=== PATIENT | female | born 1990 | race Caucasian/White ===

== ENCOUNTER → 2017-01-05 | Outpatient (CLI) | payer MEDICAID ==
[~2017-01-05] MED LIST: ALBUTEROL0.09 MG/A1 IH; ALBUTEROL0.83 MG/ML IH; AMOXICILLIN 50500 MG PO; AMOXICILLIN875 MG PO; BACTRIM DS 8001 TAB PO; BCP TD; BIRTH CONTROL PILL; BIRTH CONTROL PILLS; CEFTIN 250250 MG/TAB PO; CEFTIN250 M1 PO; CEPHALEXIN500 M1 PO; DIFLUCAN150 MG PO; DOXYCYCLINE 10100 MG PO; DROSPIRENONE; FLAGYL 375375 MG PO; FOLIC ACID PO; IBUPROFEN800 MG PO; LORTAB 2.5/5001 TAB PO; LORTAB 5/500 501 TAB PO; METRONIDAZOLE500 MG PO; MULTIPLE VITAMI1 CAP PO; NO HOME MEDICATIONS; NORCO 325 MG-51 TAB PO; NORCO 325 MG-7.1 TAB PO; PEPCID 20MG TAB20 MG PO; PERCOCET 325 MG1 TA2 PO; PHENERGAN 25 TA25 MG PO; PHENERGAN25 MG RC; PREDNISONE10 MG PO; PREDNISONE20 MG PO; PRENATAL VITAMI1 TA5 PO; PRENATAL1 TA1 PO; PRILOSEC 20MG20 MG PO; PRILOSEC10 MG PO; PROVENTIL0.09 MG/A1 IH; PYRIDIUM200 M1 PO; SEASONIQUE1 TAB PO; SEPTRA DS 8001 TAB PO; TAMIFLU 75MG75 MG PO; TRIAMCINOLONE A15 GM TP; ULTRAM 50MG TAB50 MG PO; VENTOLIN0.09 MG IH; VENTOLIN0.09 MG/AC IH; VICOPROFEN 201 UDTAB PO; ZITHROMAX TRI-500 MG PO; ZOFRAN 4MG T4 MG/TAB PO; ZOFRAN ODT4 MG PO
== END ==
LOC: MC.RAD 07:30
DX: N63 Unspecified lump in breast (principal); D24.2 Benign neoplasm of left breast; D24.1 Benign neoplasm of right breast

== ENCOUNTER 2017-02-08 05:12 | Emergency (ER) | payer MEDICAID ==
[~2017-02-08] VITALS: Ht 154.9 cm; Wt 57.7 kg
[~2017-02-08 05:12] MED LIST changes: -FLAGYL 375375 MG PO; -PERCOCET 325 MG1 TA2 PO; -PRILOSEC10 MG PO
[2017-02-08 05:16] VITALS: PULSE 95; TEMP 98
[2017-02-08 05:55] LABS: BASO % 0.4 % (0.0-2.0); EOS # 0.5 (0.0-0.7); EOS % 7.4 % (0-4.0); GRAN # 3.6 (1.4-6.5); GRAN % 51.8 % (42.2-75.2); HEMATOCRIT 41.4 % (37.0-47.0); HEMOGLOBIN 14.2 g/dl (12.5-16.0); LYMPH # 2.5 (1.2-3.4); LYMPH % 35.3 % (20.0-51.0); MEAN CELL VOLUME 83 fl (80.0-100.0); MEAN CORPUSCULAR HEMOGLOBIN 28 pg (27.0-31.0); MEAN CORPUSCULAR HGB CONC 34 g/dl (33.0-37.0); MEAN PLATELET VOLUME 9.7 fl (7.4-10.4); MONO # 0.3 (0.1-0.6); MONO % 4.7 % (1.7-9.3); PLATELET COUNT 215 K/mm3 (130-400); RED BLOOD COUNT 5.02 M/mm3 (4.10-5.30); REDCELL DISTRIBUTION WIDTH-CV 12.5 % (11.5-14.5)
[2017-02-08 06:07] LABS: ALANINE AMINOTRANSFERASE 25 U/L (9-52); ALBUMIN 3.9 gm/dL (3.5-5.0); ALKALINE PHOSPHATASE 70 U/L (50-136); ANION GAP 11 mmol/L (7-16); BILIRUBIN,TOTAL 0.6 mg/dL (0.0-1.0); BLOOD UREA NITROGEN 14 mg/dL (7-17); CALCIUM 8.9 mg/dL (8.4-10.2); CARBON DIOXIDE 23 mmol/L (22-30); CHLORIDE 105 mmol/L (98-107); CREATININE, serum 0.76 mg/dL (0.52-1.25); GLUCOSE 91 mg/dL (74-106); LIPASE 196 U/L (23-300); POTASSIUM 3.9 mmol/L (3.4-5.0); SODIUM 138 mmol/L (137-145); TOTAL PROTEIN 7.1 gm/dL (6.4-8.2)
[2017-02-08 06:08] LABS: C-REACTIVE PROTEIN < 0.5 mg/dL (0.0-0.9)
[2017-02-08 07:20] LABS: PH 6 (5-8); URINE APPEARANCE Clear; URINE BACTERIA None Seen /hpf; URINE BILIRUBIN Negative (NEGATIVE); URINE BLOOD Negative (NEGATIVE); URINE COLOR Straw; URINE GLUCOSE Negative (NEGATIVE); URINE KETONE Negative (NEGATIVE); URINE RBC 0-2 /hpf; URINE UROBILINOGEN Negative (NEGATIVE); URINE WBC 0-2 /hpf
[2017-02-08] MEDS ORDERED: PHENERGAN 25 TA25 MG PO (09:05)
[2017-02-08] MEDS ORDERED: NORCO 325 MG-51 TAB PO (09:05)
[2017-02-08 10:15] VITALS: BP 98/74
== END 2017-02-08 09:31 | disposition home or self-care (01) ==
LOC: COL.ER 05:12
PROVIDERS: Emergency Medicine
DX: R10.11 Right upper quadrant pain (principal); K59.00 Constipation, unspecified
CPT/HCPCS: J1170; J2405; J2550; J7030; Q9967

== ENCOUNTER → 2017-03-19 | Outpatient (CLI) | payer MEDICAID ==
[~2017-03-19] MED LIST changes: +FLAGYL 375375 MG PO; +PERCOCET 325 MG1 TA2 PO; +PRILOSEC10 MG PO
== END ==
LOC: COL.RAD 06:06
DX: R10.11 Right upper quadrant pain (principal); R11.2 Nausea with vomiting, unspecified; R10.13 Epigastric pain
CPT/HCPCS: A9537; J2805

== ENCOUNTER 2017-03-21 19:17 | Emergency (ER) | payer MEDICAID ==
[~2017-03-21] VITALS: Ht 154.9 cm; Wt 59.1 kg
[~2017-03-21 19:17] MED LIST changes: -FLAGYL 375375 MG PO; -PERCOCET 325 MG1 TA2 PO; -PRILOSEC10 MG PO
[2017-03-21 19:18] VITALS: BP 112/76; TEMP 98
[2017-03-21] MEDS ORDERED: MULTIPLE VITAMI1 CAP PO (19:21)
[2017-03-21] MEDS ORDERED: PRILOSEC10 MG PO (19:21)
[2017-03-21 20:17] LABS: PH 6 (5-8); SQUAMOUS EPITHELIAL 0-2 /hpf; URINE APPEARANCE Clear; URINE BACTERIA Rare /hpf; URINE BILIRUBIN Negative (NEGATIVE); URINE BLOOD Negative (NEGATIVE); URINE COLOR Yellow; URINE GLUCOSE Negative (NEGATIVE); URINE KETONE Negative (NEGATIVE); URINE RBC 0-2 /hpf; URINE UROBILINOGEN Negative (NEGATIVE); URINE WBC 0-2 /hpf
[2017-03-21 20:40] LABS: BASO % 0.4 % (0.0-2.0); EOS # 0.4 (0.0-0.7); EOS % 5.5 % (0-4.0); GRAN # 3.6 (1.4-6.5); GRAN % 49.5 % (42.2-75.2); HEMATOCRIT 41.3 % (37.0-47.0); HEMOGLOBIN 13.9 g/dl (12.5-16.0); LYMPH # 2.8 (1.2-3.4); LYMPH % 38.9 % (20.0-51.0); MEAN CELL VOLUME 84 fl (80.0-100.0); MEAN CORPUSCULAR HEMOGLOBIN 28 pg (27.0-31.0); MEAN CORPUSCULAR HGB CONC 34 g/dl (33.0-37.0); MEAN PLATELET VOLUME 9.5 fl (7.4-10.4); MONO # 0.4 (0.1-0.6); MONO % 5.4 % (1.7-9.3); PLATELET COUNT 229 K/mm3 (130-400); RED BLOOD COUNT 4.92 M/mm3 (4.10-5.30); REDCELL DISTRIBUTION WIDTH-CV 12.8 % (11.5-14.5); WHITE BLOOD COUNT 7.3 K/mm3 (4.8-10.8)
[2017-03-21 20:47] LABS: ADJUSTED CALCIUM 9.2 mg/dL (8.4-10.2); ALANINE AMINOTRANSFERASE 28 U/L (9-52); ALBUMIN 3.6 gm/dL (3.5-5.0); ALKALINE PHOSPHATASE 70 U/L (50-136); ANION GAP 10 mmol/L (7-16); BILIRUBIN,TOTAL 0.4 mg/dL (0.0-1.0); BLOOD UREA NITROGEN 14 mg/dL (7-17); CALCIUM 8.9 mg/dL (8.4-10.2); CARBON DIOXIDE 28 mmol/L (22-30); CHLORIDE 104 mmol/L (98-107); CREATININE, serum 0.83 mg/dL (0.52-1.25); GLUCOSE 68 mg/dL (74-106); POTASSIUM 3.9 mmol/L (3.4-5.0); SODIUM 142 mmol/L (137-145); TOTAL PROTEIN 6.4 gm/dL (6.4-8.2)
[2017-03-21 20:52] LABS: C-REACTIVE PROTEIN < 0.5 mg/dL (0.0-0.9)
[2017-03-21] MEDS ORDERED: NORCO 325 MG-51 TAB PO (21:44)
[2017-03-21 23:00] VITALS: PULSE 96
[2017-03-22 00:03] LABS: CHLAMYDIA/TRACH by PCR Female NOT DETECTED; NEISSERIA GON by PCR Female NOT DETECTED
== END 2017-03-21 23:00 | disposition home or self-care (01) ==
LOC: COL.ER 19:17
PROVIDERS: Nurse Practitioner
DX: R10.2 Pelvic and perineal pain (principal); J45.909 Unspecified asthma, uncomplicated; G43.909 Migraine, unspecified, not intractable, without status migrainosus
CPT/HCPCS: J1170; J1885; J2405; J7030

== ENCOUNTER 2017-03-30 13:03 | Day surgery (SDC) | payer MEDICAID ==
[~2017-03-30] VITALS: Ht 154.9 cm; Wt 60.4 kg
[~2017-03-30 13:03] MED LIST changes: +PRILOSEC10 MG PO
[2017-03-30 13:52] VITALS: BP 103/78; PULSE 81; TEMP 98.4
[2017-03-30 14:49] VITALS: BP 106/74; PULSE 96; TEMP 98
[2017-03-30 15:00] VITALS: BP 111/77; PULSE 91
[2017-03-30 15:15] VITALS: BP 109/79; PULSE 81
[2017-03-30 15:30] VITALS: BP 110/91; PULSE 95
[2017-03-30 15:45] VITALS: BP 111/90; PULSE 95
== END 2017-03-30 15:52 | disposition home or self-care (01) ==
LOC: SDCO 13:03
DX: K21.9 Gastro-esophageal reflux disease without esophagitis (principal); K30 Functional dyspepsia
CPT/HCPCS: J2250; J3010; J7030

== ENCOUNTER 2017-04-27 23:45 | Emergency (ER) | payer MEDICAID ==
[~2017-04-27] VITALS: Ht 154.9 cm; Wt 58.2 kg
[2017-04-27 23:48] VITALS: TEMP 98.2
[2017-04-27] MEDS ORDERED: FLAGYL 375375 MG PO (23:53)
[2017-04-27] MEDS ORDERED: NORCO 325 MG-51 TAB PO (23:54)
[2017-04-28] MEDS ORDERED: PERCOCET 325 MG1 TA2 PO (01:45)
[2017-04-28 01:55] VITALS: BP 123/71; PULSE 68
== END 2017-04-28 01:55 | disposition home or self-care (01) ==
LOC: COL.ER 23:45
DX: G89.18 Other acute postprocedural pain (principal); R10.9 Unspecified abdominal pain; E16.2 Hypoglycemia, unspecified; J45.909 Unspecified asthma, uncomplicated; Z90.49 Acquired absence of other specified parts of digestive tract; Z98.51 Tubal ligation status; W50.1XXA Accidental kick by another person, initial encounter
CPT/HCPCS: J1170; J2405; J7030

== ENCOUNTER 2017-05-18 13:45 | Emergency (ER) | payer MEDICAID ==
[~2017-05-18] VITALS: Ht 154.9 cm; Wt 58.2 kg
[~2017-05-18 13:45] MED LIST changes: +FLAGYL 375375 MG PO; +PERCOCET 325 MG1 TA2 PO
[2017-05-18 13:59] VITALS: BP 114/78; TEMP 99.3
[2017-05-18 15:56] VITALS: PULSE 80
== END 2017-05-18 15:48 | disposition home or self-care (01) ==
LOC: COL.ER 13:45
DX: R21 Rash and other nonspecific skin eruption (principal); L29.9 Pruritus, unspecified
CPT/HCPCS: J1100

== ENCOUNTER 2017-07-28 18:59 | Emergency (ER) | payer MEDICAID ==
[~2017-07-28] VITALS: Ht 154.9 cm; Wt 61.4 kg
[2017-07-28 19:07] VITALS: BP 120/82; PULSE 81; TEMP 98.5
[2017-07-28] MEDS ORDERED: PROBIOTIC-SUNMARK PO (20:05)
== END 2017-07-28 21:34 | disposition home or self-care (01) ==
LOC: COL.ER 18:59
DX: G43.909 Migraine, unspecified, not intractable, without status migrainosus (principal); J45.909 Unspecified asthma, uncomplicated
CPT/HCPCS: J1200; J1885; J2405; J7030

== ENCOUNTER 2017-08-21 13:04 | Day surgery (SDC) | payer MEDICAID ==
[~2017-08-21] VITALS: Ht 154.9 cm; Wt 60.6 kg
[~2017-08-21 13:04] MED LIST changes: +PROBIOTIC-SUNMARK PO
[2017-08-21] MEDS ORDERED: ZANTAC 150MG T150 MG PO (13:17)
[2017-08-21] MEDS ORDERED: ZOFRAN8 MG PO (13:19)
[2017-08-21 13:39] VITALS: BP 91/73; PULSE 72; TEMP 98.4
[2017-08-21 15:46] VITALS: BP 101/67; PULSE 72; TEMP 98.6
[2017-08-21 16:00] VITALS: BP 110/71; PULSE 75
[2017-08-21] MEDS ORDERED: LEVBID0.375 MG PO (16:02)
[2017-08-21] MEDS ORDERED: BENEFIBER PO (16:03)
[2017-08-21 16:15] VITALS: BP 99/71; PULSE 55
[2017-08-21 16:41] VITALS: BP 97/62; PULSE 82
== END 2017-08-21 16:40 | disposition home or self-care (01) ==
LOC: SDCO 13:04
DX: K64.0 First degree hemorrhoids (principal); Z90.49 Acquired absence of other specified parts of digestive tract
CPT/HCPCS: OP; J2250; J3010; J7030

== ENCOUNTER 2017-09-22 19:52 | Emergency (ER) | payer MEDICAID ==
[~2017-09-22] VITALS: Ht 154.9 cm; Wt 60.5 kg
[~2017-09-22 19:52] MED LIST changes: +BENEFIBER PO; +LEVBID0.375 MG PO; +ZANTAC 150MG T150 MG PO; +ZOFRAN8 MG PO
[2017-09-22 19:54] VITALS: TEMP 98.9
[2017-09-22 20:26] LABS: COLLECTION METHOD CLEAN CATCH
[2017-09-22 20:32] LABS: MUCOUS Present /lpf; PH 5 (5-8); URINE APPEARANCE Clear; URINE BACTERIA None Seen /hpf; URINE BILIRUBIN Negative (NEGATIVE); URINE BLOOD Negative (NEGATIVE); URINE COLOR Yellow; URINE GLUCOSE Negative (NEGATIVE); URINE KETONE Negative (NEGATIVE); URINE LEUKOCYTE ESTERASE Negative (NEGATIVE); URINE PROTEIN(semi-quant) Negative (NEGATIVE); URINE RBC 0-2 /hpf; URINE UROBILINOGEN Negative (NEGATIVE); URINE WBC 0-2 /hpf
[2017-09-22 20:36] LABS: BASO % 0.3 % (0.0-2.0); EOS # 0.3 (0.0-0.7); EOS % 3.2 % (0-4.0); GRAN % 78.9 % (42.2-75.2); HEMATOCRIT 42.5 % (37.0-47.0); HEMOGLOBIN 14.1 g/dl (12.5-16.0); LYMPH # 1.3 (1.2-3.4); LYMPH % 12.5 % (20.0-51.0); MEAN CELL VOLUME 85 fl (80.0-100.0); MEAN CORPUSCULAR HEMOGLOBIN 28 pg (27.0-31.0); MEAN CORPUSCULAR HGB CONC 33 g/dl (33.0-37.0); MEAN PLATELET VOLUME 9.8 fl (7.4-10.4); MONO # 0.5 (0.1-0.6); MONO % 4.7 % (1.7-9.3); PLATELET COUNT 209 K/mm3 (130-400); RED BLOOD COUNT 5.03 M/mm3 (4.10-5.30); WHITE BLOOD COUNT 10.1 K/mm3 (4.8-10.8)
[2017-09-22] MEDS ORDERED: BENTYL 10MG10 MG/CAP PO (20:37)
[2017-09-22] MEDS ORDERED: PROAIR HFA0.09 MG/AC IH (20:37)
[2017-09-22] MEDS ORDERED: CARAFATE 1GM1 G PO (20:37)
[2017-09-22] MEDS ORDERED: PRILOSEC 20MG20 MG PO (20:38)
[2017-09-22] MEDS ORDERED: CLARITIN 1010 MG/TAB PO (20:38)
[2017-09-22 20:44] LABS: ADJUSTED CALCIUM 9.2 mg/dL (8.4-10.2); ALBUMIN 3.9 gm/dL (3.5-5.0); BILIRUBIN,TOTAL 0.5 mg/dL (0.0-1.0); C-REACTIVE PROTEIN 0.7 mg/dL (0.0-0.9); CALCIUM 9.1 mg/dL (8.4-10.2); CREATININE, serum 0.84 mg/dL (0.52-1.25); POTASSIUM 3.7 mmol/L (3.4-5.0)
[2017-09-22 22:14] VITALS: BP 111/70; PULSE 96
[2017-09-23] MEDS ORDERED: PHENERGAN 25 TA25 MG PO (05:35)
[2017-09-23] MEDS ORDERED: ZOFRAN ODT4 MG PO (05:35)
== END 2017-09-22 22:15 | disposition home or self-care (01) ==
LOC: COL.ER 19:52
PROVIDERS: Physician Assistant
DX: K52.9 Noninfective gastroenteritis and colitis, unspecified (principal); Z90.49 Acquired absence of other specified parts of digestive tract; Z98.51 Tubal ligation status
CPT/HCPCS: J1885; J2405; J2550; J7030

== ENCOUNTER 2017-09-23 03:25 | Emergency (ER) | payer MEDICAID ==
[~2017-09-23] VITALS: Ht 154.9 cm; Wt 60.5 kg
[~2017-09-23 03:25] MED LIST changes: +BENTYL 10MG10 MG/CAP PO; +CARAFATE 1GM1 G PO; +CLARITIN 1010 MG/TAB PO; +PROAIR HFA0.09 MG/AC IH
[2017-09-23 03:29] VITALS: BP 120/73; TEMP 97.4
[2017-09-23 04:39] LABS: BASO % 0.2 % (0.0-2.0); EOS # 0.2 (0.0-0.7); EOS % 1.9 % (0-4.0); GRAN # 7.5 (1.4-6.5); HEMATOCRIT 42.2 % (37.0-47.0); HEMOGLOBIN 14.1 g/dl (12.5-16.0); LYMPH # 0.8 (1.2-3.4); LYMPH % 9.2 % (20.0-51.0); MEAN CELL VOLUME 85 fl (80.0-100.0); MEAN CORPUSCULAR HEMOGLOBIN 28 pg (27.0-31.0); MEAN CORPUSCULAR HGB CONC 33 g/dl (33.0-37.0); MONO # 0.5 (0.1-0.6); MONO % 5.4 % (1.7-9.3); PLATELET COUNT 211 K/mm3 (130-400); RED BLOOD COUNT 4.97 M/mm3 (4.10-5.30); WHITE BLOOD COUNT 9.1 K/mm3 (4.8-10.8)
[2017-09-23 04:51] LABS: ALBUMIN 3.8 gm/dL (3.5-5.0); BILIRUBIN,TOTAL 0.5 mg/dL (0.0-1.0); C-REACTIVE PROTEIN 1.6 mg/dL (0.0-0.9); CALCIUM 8.8 mg/dL (8.4-10.2); CREATININE, serum 0.78 mg/dL (0.52-1.25); POTASSIUM 4.2 mmol/L (3.4-5.0); TOTAL PROTEIN 6.9 gm/dL (6.4-8.2)
[2017-09-23] MEDS ORDERED: PHENERGAN 25 TA25 MG PO (05:35)
[2017-09-23] MEDS ORDERED: ZOFRAN ODT4 MG PO (05:35)
[2017-09-23 06:12] VITALS: PULSE 106
== END 2017-09-23 06:13 | disposition home or self-care (01) ==
LOC: COL.ER 03:25
PROVIDERS: Emergency Medicine
DX: R11.10 Vomiting, unspecified (principal); R19.7 Diarrhea, unspecified; Z90.49 Acquired absence of other specified parts of digestive tract
CPT/HCPCS: J2405; J2550; J7030

== ENCOUNTER 2017-10-27 23:21 | Emergency (ER) | payer MEDICAID ==
[~2017-10-27] VITALS: Ht 152.4 cm; Wt 60.5 kg
[2017-10-27 23:25] VITALS: BP 105/67; TEMP 98.1
[2017-10-27] MEDS ORDERED: DIFLUCAN150 MG PO (23:31)
[2017-10-28 01:07] VITALS: PULSE 105
== END 2017-10-28 01:07 | disposition home or self-care (01) ==
LOC: COL.ER 23:21
DX: J45.901 Unspecified asthma with (acute) exacerbation (principal)
CPT/HCPCS: J2930

== ENCOUNTER 2018-05-14 00:55 | Emergency (ER) | payer BC ==
[~2018-05-14] VITALS: Ht 152.4 cm; Wt 61.4 kg
[2018-05-14 00:58] VITALS: BP 108/75; PULSE 94; TEMP 98
[2018-05-14] MEDS ORDERED: WELLBUTRIN SR150 M1 PO (01:09)
[2018-05-14] MEDS ORDERED: PRILOSEC 20MG20 MG PO (01:09)
== END 2018-05-14 01:49 | disposition home or self-care (01) ==
LOC: COL.ER 00:55
DX: H92.02 Otalgia, left ear (principal); F32.9 Major depressive disorder, single episode, unspecified; F41.9 Anxiety disorder, unspecified; K21.9 Gastro-esophageal reflux disease without esophagitis

== ENCOUNTER 2018-11-06 21:07 | Emergency (ER) | payer BC, OTHER ==
[~2018-11-06] VITALS: Ht 154.9 cm; Wt 61.8 kg
[~2018-11-06 21:07] MED LIST changes: +WELLBUTRIN SR150 M1 PO
[2018-11-06 21:09] VITALS: BP 116/78; TEMP 98.3
[2018-11-06] MEDS ORDERED: CLARITIN 1010 MG/TAB PO (21:15)
[2018-11-06] MEDS ORDERED: PREDNISONE10 MG PO (22:26)
[2018-11-06 22:28] VITALS: PULSE 94
[2018-11-06] MEDS ORDERED: BENTYL 20MG20 MG/TAB PO (22:29)
== END 2018-11-06 22:41 | disposition home or self-care (01) ==
LOC: COL.ER 21:07
DX: J45.901 Unspecified asthma with (acute) exacerbation (principal); J06.9 Acute upper respiratory infection, unspecified
CPT/HCPCS: J7512

== ENCOUNTER 2019-05-05 18:01 | Emergency (ER) | payer SELFPAY ==
[~2019-05-05] VITALS: Ht 154.9 cm; Wt 67.7 kg
[~2019-05-05 18:01] MED LIST changes: +BENTYL 20MG20 MG/TAB PO
[2019-05-05 18:23] VITALS: TEMP 98.1
[2019-05-05 21:08] LABS: BASO % 0.2 % (0.0-2.0); EOS # 0.3 (0.0-0.7); EOS % 3.4 % (0-4.0); GRAN # 4.8 (1.4-6.5); GRAN % 54.3 % (42.2-75.2); HEMATOCRIT 46.3 % (37.0-47.0); HEMOGLOBIN 15.5 g/dl (12.5-16.0); LYMPH # 3.2 (1.2-3.4); LYMPH % 36.2 % (20.0-51.0); MEAN CELL VOLUME 85 fl (80.0-100.0); MEAN CORPUSCULAR HEMOGLOBIN 28 pg (27.0-31.0); MEAN CORPUSCULAR HGB CONC 34 g/dl (33.0-37.0); MEAN PLATELET VOLUME 9.4 fl (7.4-10.4); MONO # 0.5 (0.1-0.6); MONO % 5.4 % (1.7-9.3); PLATELET COUNT 257 K/mm3 (130-400); RED BLOOD COUNT 5.46 M/mm3 (4.10-5.30); REDCELL DISTRIBUTION WIDTH-CV 12.7 % (11.5-14.5)
[2019-05-05 21:13] LABS: COLLECTION METHOD CLEAN CATCH
[2019-05-05 21:18] LABS: PH 7 (5-8); SQUAMOUS EPITHELIAL 0-2 /hpf; URINE APPEARANCE Clear; URINE BACTERIA None Seen /hpf; URINE BILIRUBIN Negative (NEGATIVE); URINE BLOOD Negative (NEGATIVE); URINE COLOR Straw; URINE GLUCOSE Negative (NEGATIVE); URINE KETONE Negative (NEGATIVE); URINE LEUKOCYTE ESTERASE Negative (NEGATIVE); URINE NITRATE Negative (NEGATIVE); URINE PROTEIN(semi-quant) Negative (NEGATIVE); URINE RBC 0-2 /hpf; URINE UROBILINOGEN Negative (NEGATIVE)
[2019-05-05 21:21] LABS: ALANINE AMINOTRANSFERASE 38 U/L (9-52); ALBUMIN 4.1 gm/dL (3.5-5.0); ALKALINE PHOSPHATASE 79 U/L (50-136); ANION GAP 8 mmol/L (7-16); AST,SGOT 36 U/L (15-37); BILIRUBIN,TOTAL 0.2 mg/dL (0.0-1.0); BLOOD UREA NITROGEN 12 mg/dL (7-17); C-REACTIVE PROTEIN < 0.5 mg/dL (0.0-0.9); CALCIUM 9.1 mg/dL (8.4-10.2); CARBON DIOXIDE 28 mmol/L (22-30); CHLORIDE 104 mmol/L (98-107); CREATININE, serum 0.79 (0.52-1.25); GLUCOSE 87 mg/dL (74-106); LIPASE 115 U/L (23-300); SODIUM 140 mmol/L (137-145); TOTAL PROTEIN 7.4 gm/dL (6.4-8.2)
[2019-05-05] MEDS ORDERED: ZOFRAN ODT4 MG PO (21:46)
[2019-05-05 21:55] VITALS: BP 131/82; PULSE 94
== END 2019-05-05 21:55 | disposition home or self-care (01) ==
LOC: COL.ER 18:01
PROVIDERS: Physician Assistant
DX: R10.13 Epigastric pain (principal); R11.2 Nausea with vomiting, unspecified; Z98.51 Tubal ligation status; Z90.49 Acquired absence of other specified parts of digestive tract
CPT/HCPCS: J2270; J2405; J7030

== ENCOUNTER 2019-05-08 08:18 | Emergency (ER) | payer SELFPAY ==
[~2019-05-08] VITALS: Ht 154.9 cm; Wt 65.9 kg
[2019-05-08 08:55] LABS: COLLECTION METHOD CLEAN CATCH
[2019-05-08 09:02] LABS: MUCOUS Present /lpf; PH 6 (5-8); SQUAMOUS EPITHELIAL 0-2 /hpf; URINE APPEARANCE Clear; URINE BACTERIA Rare /hpf; URINE BILIRUBIN Negative (NEGATIVE); URINE BLOOD Negative (NEGATIVE); URINE COLOR Yellow; URINE GLUCOSE Negative (NEGATIVE); URINE KETONE Negative (NEGATIVE); URINE LEUKOCYTE ESTERASE Negative (NEGATIVE); URINE NITRATE Negative (NEGATIVE); URINE PROTEIN(semi-quant) Negative (NEGATIVE); URINE RBC 0-2 /hpf; URINE UROBILINOGEN Negative (NEGATIVE)
[2019-05-08 09:10] LABS: BASO % 0.3 % (0.0-2.0); EOS # 0.3 (0.0-0.7); EOS % 2.9 % (0-4.0); GRAN # 5.3 (1.4-6.5); GRAN % 61.9 % (42.2-75.2); HEMATOCRIT 49.4 % (37.0-47.0); HEMOGLOBIN 16.2 g/dl (12.5-16.0); LYMPH # 2.6 (1.2-3.4); LYMPH % 29.8 % (20.0-51.0); MEAN CELL VOLUME 86 fl (80.0-100.0); MEAN CORPUSCULAR HEMOGLOBIN 28 pg (27.0-31.0); MEAN CORPUSCULAR HGB CONC 33 g/dl (33.0-37.0); MEAN PLATELET VOLUME 9.2 fl (7.4-10.4); MONO # 0.4 (0.1-0.6); MONO % 4.5 % (1.7-9.3); PLATELET COUNT 287 K/mm3 (130-400); RED BLOOD COUNT 5.76 M/mm3 (4.10-5.30); REDCELL DISTRIBUTION WIDTH-CV 12.7 % (11.5-14.5)
[2019-05-08 09:28] LABS: ALANINE AMINOTRANSFERASE 39 U/L (9-52); ALBUMIN 4.3 gm/dL (3.5-5.0); ALKALINE PHOSPHATASE 87 U/L (50-136); ANION GAP 9 mmol/L (7-16); AST,SGOT 35 U/L (15-37); BILIRUBIN,TOTAL 0.5 mg/dL (0.0-1.0); BLOOD UREA NITROGEN 9 mg/dL (7-17); CALCIUM 9.6 mg/dL (8.4-10.2); CARBON DIOXIDE 29 mmol/L (22-30); CHLORIDE 104 mmol/L (98-107); CREATININE, serum 0.83 (0.52-1.25); GLUCOSE 95 mg/dL (74-106); LIPASE 107 U/L (23-300); POTASSIUM 4.1 mmol/L (3.4-5.0); SODIUM 143 mmol/L (137-145)
[2019-05-08 09:32] LABS: C-REACTIVE PROTEIN < 0.5 mg/dL (0.0-0.9)
[2019-05-08] MEDS ORDERED: PROTONIX20 MG PO (10:40)
[2019-05-08 10:45] VITALS: BP 139/96; PULSE 104; TEMP 98.3
== END 2019-05-08 10:45 | disposition home or self-care (01) ==
LOC: COL.ER 08:18
PROVIDERS: Family Medicine; Physician Assistant
DX: R11.2 Nausea with vomiting, unspecified (principal); R19.7 Diarrhea, unspecified; R10.13 Epigastric pain; R10.11 Right upper quadrant pain; F32.9 Major depressive disorder, single episode, unspecified; Z98.51 Tubal ligation status; G43.909 Migraine, unspecified, not intractable, without status migrainosus; Z90.49 Acquired absence of other specified parts of digestive tract
CPT/HCPCS: J1170; J2405; J7030; Q9967

== ENCOUNTER 2021-11-18 22:09 | Emergency (ER) | payer OTHER ==
[~2021-11-18 22:09] MED LIST changes: +PROTONIX20 MG PO
[2021-11-18 22:20] VITALS: TEMP 98.4
[2021-11-18 23:22] VITALS: BP 124/87; PULSE 78
== END 2021-11-18 23:22 | disposition home or self-care (01) ==
LOC: COL.ER 22:09
DX: U07.1 COVID-19 (principal); J45.909 Unspecified asthma, uncomplicated; Z79.899 Other long term (current) drug therapy
CPT/HCPCS: J1885

== ENCOUNTER 2021-12-27 10:27 | Inpatient (IN) | payer OTHER ==
[~2021-12-27] VITALS: Ht 154.9 cm; Wt 74.3 kg
[2021-12-27] VITALS (355 sets, daily range): BP systolic 100–116; BP diastolic 68–81; PULSE 103–120; TEMP 98.1–99.2; O2SAT 80–100
[2021-12-27] MEDS ORDERED: ZYRTEC 10MG10 MG PO (11:19)
[2021-12-27] MEDS ORDERED: CLARITIN 1010 MG/TAB PO (11:25)
[2021-12-27 12:09] LABS: HEMATOCRIT 42.7 % (37.0-47.0); HEMOGLOBIN 14.1 g/dl (12.5-16.0); MEAN CELL VOLUME 85 fl (80.0-100.0); MEAN CORPUSCULAR HEMOGLOBIN 28 pg (27-31); MEAN CORPUSCULAR HGB CONC 33 g/dl (33.0-37.0); MEAN PLATELET VOLUME 10.7 fl (7.4-10.4); PLATELET COUNT 200 K/mm3 (130-400); RED BLOOD COUNT 5.04 M/mm3 (4.10-5.30); REDCELL DISTRIBUTION WIDTH-CV 14.1 % (11.5-14.5)
[2021-12-27 12:25] LABS: ALBUMIN 3.2 gm/dL (3.5-5.0); BILIRUBIN,TOTAL 0.7 mg/dL (0.2-1.2); CALCIUM 7.9 mg/dL (8.4-10.2); CREATININE, serum 0.98 mg/dL (0.57-1.11); POTASSIUM 3.7 mmol/L (3.5-4.5); TOTAL PROTEIN 6.2 gm/dL (6.2-8.1)
[2021-12-27 12:32] LABS: TROPONIN-I 0.046 ng/mL (0.00-0.033)
[2021-12-27 12:42] LABS: ANISOCYTOSIS 1+; BAND 18 % (0-10); LYMPHOCYTE 3 % (20.0-51.0); MICROCYTOSIS 1+; NEUTROPHILS 76 % (42.0-75.2); PLATELET ESTIMATE NORMAL (NORMAL)
[2021-12-27 16:20] LABS: COLLECTION METHOD CLEAN CATCH
[2021-12-27 16:36] LABS: MUCOUS Present (NOT PRESENT); PH 5 (5-8); URINE APPEARANCE Hazy (CLEAR/HAZY); URINE BACTERIA Rare /hpf (NONE SEEN); URINE BILIRUBIN Negative (NEGATIVE); URINE BLOOD 1+ (NEGATIVE); URINE COLOR Yellow (YELLOW); URINE GLUCOSE Negative (NEGATIVE); URINE KETONE Negative (NEGATIVE); URINE LEUKOCYTE ESTERASE 2+ (NEGATIVE); URINE NITRATE Negative (NEGATIVE); URINE PROTEIN(semi-quant) 1+ (NEGATIVE); URINE UROBILINOGEN Negative (NEGATIVE)
[2021-12-27 19:11] LABS: CREATININE, serum 0.57 mg/dL (0.57-1.11); MAGNESIUM 1.1 mg/dL (1.6-2.6)
[2021-12-27 19:31] LABS: POTASSIUM 2.6 mmol/L (3.5-4.5)
[2021-12-27 19:32] LABS: CALCIUM 5.5 mg/dL (8.4-10.2)
--- NOTE | 2021-12-27 20:26 | NUR ---
PATIENT ARRIVED AT APPROX 1040 TO THE UNIT A DIRECT ADMIT FROM HER PCP DUE TO HER BEING SEPTIC FROM AN INFECTED TATTOO. PATIENT RECEIVED FLUID BOLUSES AND MEDS FOR PAIN AND NAUSEA; PATIENT ALSO STARTED ON VANC AND ZOSYN. AFTER INITIATING ABX PATIENT DEVELOPED A RASH THAT WAS PRIMARILY LOCATED ON HER CHEST, ABD, AND THIGHS. CALLED DR. VAUGHAN WHO ORDERED IV BENADRYL AND SUBSEQUENTLY STOPPED ABX, NOT TO RESTART UNTIL RASH WAS CLEAR. AT SHIFT CHANGE THE RASH WAS NOT GONE AND ABX WERE NOT RESTARTED; VANC WAS DC'D.
[2021-12-27 20:45] LABS: CALCIUM 7.1 mg/dL (8.4-10.2); CREATININE, serum 0.76 mg/dL (0.57-1.11); MAGNESIUM 1.5 mg/dL (1.6-2.6); POTASSIUM 3.5 mmol/L (3.5-4.5)
[2021-12-28] VITALS (273 sets, daily range): BP systolic 105–118; BP diastolic 68–88; PULSE 99–113; TEMP 97.7–99.7; O2SAT 86–100
[2021-12-28 04:11] LABS: BASO % 0.2 % (0.0-2.0); EOS # 0.3 K/mm3 (0.0-0.7); EOS % 2.7 % (0.0-4.0); GRAN # 8.1 K/mm3 (1.4-6.5); LYMPH # 0.6 K/mm3 (1.2-3.4); LYMPH % 6.4 % (20.0-51.0); MEAN CELL VOLUME 85 fl (80.0-100.0); MEAN CORPUSCULAR HGB CONC 33 g/dl (33.0-37.0); MEAN PLATELET VOLUME 9.8 fl (7.4-10.4); MONO # 0.3 K/mm3 (0.1-0.6); MONO % 3.2 % (1.7-9.3); PLATELET COUNT 162 K/mm3 (130-400); RED BLOOD COUNT 4.15 M/mm3 (4.10-5.30); REDCELL DISTRIBUTION WIDTH-CV 14.1 % (11.5-14.5)
[2021-12-28 04:14] LABS: HEMOGLOBIN 11.6 g/dl (12.5-16.0); MEAN CORPUSCULAR HEMOGLOBIN 28 pg (27-31)
[2021-12-28 04:15] LABS: HEMATOCRIT 35.1 % (37.0-47.0)
[2021-12-28 04:33] LABS: CALCIUM 7.9 mg/dL (8.4-10.2); CREATININE, serum 0.79 mg/dL (0.57-1.11); MAGNESIUM 1.9 mg/dL (1.6-2.6); POTASSIUM 3.6 mmol/L (3.5-4.5)
[2021-12-28 04:43] LABS: TROPONIN-I 0.066 ng/mL (0.00-0.033)
--- NOTE | 2021-12-28 10:43 | NUR ---
YVONNE met with the patient and her mother to discuss discharge plan. The patient lives in [place] with her , Maikel (ph#[phone]), and their three children. She works at [employer]. She reports independence with ADLs and does not have any DME. The patient's PCP is Dr. Yudith Olson and she receives her medications from [facility]. She reports no difficulties obtaining her meds. The patient does not have a DPOA-HC and she was not interested in completing one at this time. The patient plans on returning home with her family upon discharge. No additional needs at this time. *Discharge plan: home with family*
--- NOTE | 2021-12-28 14:59 | NUR ---
RECIEVED REPORT FROM VILLA.
[2021-12-28] MEDS ORDERED: OMEGA-3 1000 MG1 CAP PO (16:33)
[2021-12-28] MEDS ORDERED: CVS SPECTRAVIT1 EA15 PO (16:33)
--- NOTE | 2021-12-28 16:39 | NUR ---
PT ADMITTED TO UNIT. ORIENTED PT TO ROOM. ASSESSMENT COMPLETE. MED REC UPDATED. REPORTS PAIN TO ABDOMEN AND R FOOT. PT CONTINUES TO BE NAUSEOUS, TOO EARLY FOR ANTIEMETICS. CALL LIGHT WITHIN REACH. WILL CONTINUE TO MONITOR.
--- NOTE | 2021-12-28 16:40 | NUR ---
PT was transfered to medical floor via wheelchair. All belingings were transfered with PT. Nurse Ellis RN resumed care at bedside.
[2021-12-29 04:18] VITALS: BP 101/77; PULSE 89; TEMP 99
--- NOTE | 2021-12-29 06:01 | NUR ---
RESTED THROUGH THE NIGHT, HAS A HEADACHE THIS. TYL GIVEN. NEEDS MET.
[2021-12-29 06:15] LABS: BASO % 0.2 % (0.0-2.0); EOS # 0.3 K/mm3 (0.0-0.7); EOS % 4.1 % (0.0-4.0); GRAN # 4.7 K/mm3 (1.4-6.5); GRAN % 70.8 % (42.2-75.2); HEMOGLOBIN 10.9 g/dl (12.5-16.0); LYMPH # 1.3 K/mm3 (1.2-3.4); MEAN CELL VOLUME 83 fl (80.0-100.0); MEAN CORPUSCULAR HEMOGLOBIN 28 pg (27-31); MEAN CORPUSCULAR HGB CONC 34 g/dl (33.0-37.0); MEAN PLATELET VOLUME 10.1 fl (7.4-10.4); MONO # 0.4 K/mm3 (0.1-0.6); MONO % 5.3 % (1.7-9.3); PLATELET COUNT 169 K/mm3 (130-400); REDCELL DISTRIBUTION WIDTH-CV 14.1 % (11.5-14.5)
[2021-12-29 06:16] LABS: HEMATOCRIT 32.3 % (37.0-47.0)
[2021-12-29 06:34] LABS: CREATININE, serum 0.71 mg/dL (0.57-1.11); POTASSIUM 3.6 mmol/L (3.5-4.5)
[2021-12-29 06:45] LABS: TROPONIN-I 0.036 ng/mL (0.00-0.033)
[2021-12-29 07:50] VITALS: BP 111/81; PULSE 90; TEMP 98.3
--- NOTE | 2021-12-29 10:31 | NUR ---
Initial visit; Patient and family thanked Sand Analyst for looking in on her, offering prayer and God's blessings along with encouragement. Sand Analyst will keep Lynn in her prayers.
[2021-12-29 11:50] VITALS: BP 128/91; PULSE 76; TEMP 98.5
[2021-12-29 16:25] VITALS: BP 120/80; PULSE 90; TEMP 98.6
[2021-12-29 20:10] VITALS: BP 118/94; PULSE 77; TEMP 98.4
--- NOTE | 2021-12-29 21:00 | NUR ---
Patient is resting in bed, alert and oriented x 4. Complains of pain in her right foot. PRN provided. Assessment completed. No further needs needed at this time. Call light within reach.
[2021-12-29 23:36] VITALS: BP 120/83; PULSE 73; TEMP 99.3
[2021-12-30 03:26] VITALS: BP 117/76; PULSE 76; TEMP 98.3
--- NOTE | 2021-12-30 05:30 | NUR ---
Patient has had a calm night, no fevers, just pain and discomfort in her right foot. It continues reddened and warm. Report will be given to day RN.
[2021-12-30 06:01] LABS: HEMOGLOBIN 11.7 g/dl (12.5-16.0); MEAN CELL VOLUME 84 fl (80.0-100.0); MEAN CORPUSCULAR HEMOGLOBIN 28 pg (27-31); MEAN CORPUSCULAR HGB CONC 33 g/dl (33.0-37.0); MEAN PLATELET VOLUME 10.1 fl (7.4-10.4); PLATELET COUNT 208 K/mm3 (130-400); RED BLOOD COUNT 4.23 M/mm3 (4.10-5.30); REDCELL DISTRIBUTION WIDTH-CV 13.9 % (11.5-14.5)
[2021-12-30 06:07] LABS: HEMATOCRIT 35.4 % (37.0-47.0)
[2021-12-30 07:40] LABS: BAND 5 % (0-10); LYMPHOCYTE 28 % (20.0-51.0); METAMYELOCYTE 2 % (0-0); NEUTROPHILS 60 % (42.0-75.2)
[2021-12-30 07:41] LABS: PLATELET ESTIMATE NORMAL (NORMAL)
[2021-12-30 07:53] VITALS: BP 125/90; PULSE 87; TEMP 98.1
[2021-12-30] MEDS ORDERED: DOXYCYCLINE HY100 MG PO (08:46)
[2021-12-30] MEDS ORDERED: ZOFRAN ODT4 MG PO (08:47)
--- NOTE | 2021-12-30 13:10 | NUR ---
Scheduled medications given. Shift assessment performed. PRN zofran given for nausea. Patient deemed fit for discharge. SHAYAN Hawk contacted regarding removal of PICC. PICC removed. Flat time completed. Wound on right foot cleaned. Discharge education/instructions given. All questions answered. VSS Patient A&O. Patient escorted from building via wheelchair by [facility] Staff. Family transporting home.
== END 2021-12-30 13:10 | disposition home or self-care (01) | DRG 871 ==
LOC: IMCU 10:27 → ICU 10:33 → MEDICAL 10:33
PROVIDERS: Internal Medicine Sleep Medicine; Physician Assistant; ADMIT Internal Medicine
PROC: 02HV33Z Insertion of Infusion Device into Superior Vena Cava, Percutaneous Approach (ICD-10-PCS; principal; 2021-12-27)
DX: A41.9 Sepsis, unspecified organism (principal); I21.A1 Myocardial infarction type 2; L03.115 Cellulitis of right lower limb; E28.2 Polycystic ovarian syndrome; J45.909 Unspecified asthma, uncomplicated; K21.9 Gastro-esophageal reflux disease without esophagitis; R65.20 Severe sepsis without septic shock; E83.42 Hypomagnesemia; G43.909 Migraine, unspecified, not intractable, without status migrainosus; B95.61 Methicillin susceptible Staphylococcus aureus infection as the cause of diseases classified elsewhere; Z20.822 Contact with and (suspected) exposure to COVID-19; Z23 Encounter for immunization
CPT/HCPCS: 99223-AI; 99232-AI; 99239; C1751; J0610; J0690; J1200; J1650; J2270; J2405; J2543; J3370; J3475; J7030; J7050

== ENCOUNTER 2022-01-02 10:49 | Outpatient (RCR) | payer OTHER ==
[~2022-01-02 10:49] MED LIST changes: +CVS SPECTRAVIT1 EA15 PO; +DOXYCYCLINE HY100 MG PO; +OMEGA-3 1000 MG1 CAP PO; +ZYRTEC 10MG10 MG PO
== END 2022-01-26 | disposition home or self-care (01) ==
LOC: WSOH
DX: S39.012D Strain of muscle, fascia and tendon of lower back, subsequent encounter (principal); E28.2 Polycystic ovarian syndrome; Z90.49 Acquired absence of other specified parts of digestive tract; Z98.51 Tubal ligation status; Y99.0 Civilian activity done for income or pay

== ENCOUNTER 2022-02-18 04:34 | Emergency (ER) | payer SELFPAY ==
[~2022-02-18] VITALS: Ht 154.9 cm; Wt 68.2 kg
[2022-02-18 04:38] VITALS: BP 127/88; TEMP 98.1
[2022-02-18] MEDS ORDERED: AMOXICILLIN 8751 TAB PO (04:50)
[2022-02-18] MEDS ORDERED: PREDNISONE20 MG PO (04:50)
[2022-02-18 05:01] VITALS: PULSE 78
== END 2022-02-18 05:02 | disposition home or self-care (01) ==
LOC: COL.ER 04:34
DX: J32.0 Chronic maxillary sinusitis (principal); Z88.1 Allergy status to other antibiotic agents

== ENCOUNTER 2022-11-25 07:06 | Emergency (ER) | payer BC ==
[~2022-11-25] VITALS: Ht 154.9 cm; Wt 68.6 kg
[~2022-11-25 07:06] MED LIST changes: +AMOXICILLIN 8751 TAB PO
[2022-11-25 07:13] VITALS: TEMP 98.7
[2022-11-25 08:44] LABS: COLLECTION METHOD CLEAN CATCH
[2022-11-25 08:54] LABS: BASO % 0.3 % (0.0-2.0); EOS % 0.2 % (0.0-4.0); GRAN # 11.7 K/mm3 (1.4-6.5); GRAN % 88.6 % (42.2-75.2); HEMATOCRIT 44.9 % (37.0-47.0); LYMPH # 0.8 K/mm3 (1.2-3.4); LYMPH % 6.4 % (20.0-51.0); MEAN CELL VOLUME 86 fl (80.0-100.0); MEAN CORPUSCULAR HEMOGLOBIN 29 pg (27-31); MEAN CORPUSCULAR HGB CONC 33 g/dl (33.0-37.0); MEAN PLATELET VOLUME 9.9 fl (7.4-10.4); MONO # 0.5 K/mm3 (0.1-0.6); PLATELET COUNT 244 K/mm3 (130-400); REDCELL DISTRIBUTION WIDTH-CV 12.7 % (11.5-14.5)
[2022-11-25 09:02] LABS: MUCOUS Present (NOT PRESENT); URINE BACTERIA None Seen /hpf (NONE SEEN); URINE WBC 0-2 /hpf (0-2)
[2022-11-25 09:03] LABS: URINE APPEARANCE Clear (CLEAR/HAZY); URINE COLOR Yellow (YELLOW)
[2022-11-25 09:04] LABS: PH 8.5 (5.0-8.5); URINE BLOOD Negative (NEGATIVE); URINE GLUCOSE Negative (NEGATIVE); URINE KETONE Negative (NEGATIVE); URINE NITRATE Negative (NEGATIVE); URINE PROTEIN(semi-quant) 1+ (NEGATIVE); URINE UROBILINOGEN 0.2 E.U/dL (0.2-1.0)
[2022-11-25 09:08] LABS: STREP SCREEN POSITIVE
[2022-11-25 09:12] LABS: ALBUMIN 3.9 gm/dL (3.5-5.0); BILIRUBIN,TOTAL 0.4 mg/dL (0.2-1.2); CALCIUM 9.6 mg/dL (8.4-10.2); CREATININE, serum 0.83 mg/dL (0.57-1.11); MAGNESIUM 1.9 mg/dL (1.6-2.6); PHOSPHOROUS 2.3 mg/dL (2.3-4.7); POTASSIUM 4.1 mmol/L (3.5-4.5); TOTAL PROTEIN 8.2 gm/dL (6.2-8.1)
[2022-11-25] MEDS ORDERED: ZOFRAN ODT4 MG PO (09:29)
[2022-11-25 09:33] VITALS: BP 122/80; PULSE 99
== END 2022-11-25 09:40 | disposition home or self-care (01) ==
LOC: COL.ER 07:06
PROVIDERS: Emergency Medicine
DX: J02.0 Streptococcal pharyngitis (principal); Z20.822 Contact with and (suspected) exposure to COVID-19; Z88.1 Allergy status to other antibiotic agents
CPT/HCPCS: J0561; J0780; J1200; J1885; J7030

== ENCOUNTER 2023-01-28 10:30 | Emergency (ER) | payer BC ==
[~2023-01-28] VITALS: Ht 154.9 cm; Wt 68.2 kg
[2023-01-28 10:33] VITALS: BP 131/92; PULSE 110; TEMP 99
[2023-01-28 11:32] LABS: STREP SCREEN POSITIVE
== END 2023-01-28 12:05 | disposition home or self-care (01) ==
LOC: COL.ER 10:30
PROVIDERS: Nurse Practitioner Family
DX: G43.909 Migraine, unspecified, not intractable, without status migrainosus (principal); J02.0 Streptococcal pharyngitis; Z88.1 Allergy status to other antibiotic agents
CPT/HCPCS: J0561; J0780; J1100; J1200; J1885; J7120